=== PATIENT | female | born 1975 ===

== ENCOUNTER 2020-12-28 10:00 | Inpatient (IN) | payer OTHER ==
[~2020-12-28] VITALS: Ht 160 cm; Wt 63.5 kg
[2020-12-28] MEDS ORDERED: [UNRECOGNIZED DRUG - OTHER] PO (14:27)
[2021-01-04] MEDS ORDERED: PANTOPRAZOLE SO40 MG (08:16)
[2021-01-09] MEDS ORDERED: GABAPENTIN300 M2 (15:15)
[2021-01-10] MEDS ORDERED: ULTRAM50 MG PO (09:06)
[2021-01-10] MEDS ORDERED: INTESTINEX680 M1 PO (09:08)
[2021-01-10] MEDS ORDERED: POLY119PG PO (09:08)
== END 2021-01-10 11:22 | disposition home or self-care (01) | DRG 329 ==
LOC: EDUNIT# 10:00 → O/R 01-04 06:44 → SURG 01-04 06:44 → SURH 01-04 08:30 → SURG 01-04 15:37
PROVIDERS: Obstetrics & Gynecology Gynecology; ADMIT Surgery; ATTEND Surgery
PROC: 0UT1FZZ Resection of Left Ovary, Via Natural or Artificial Opening With Percutaneous Endoscopic Assistance (ICD-10-PCS; 2021-01-04)
PROC: 0DNW4ZZ Release Peritoneum, Percutaneous Endoscopic Approach (ICD-10-PCS; 2021-01-04)
PROC: 0UT7FZZ Resection of Bilateral Fallopian Tubes, Via Natural or Artificial Opening With Percutaneous Endoscopic Assistance (ICD-10-PCS; 2021-01-04)
PROC: 0DJD8ZZ Inspection of Lower Intestinal Tract, Via Natural or Artificial Opening Endoscopic (ICD-10-PCS; 2021-01-04)
PROC: 0UT9FZZ Resection of Uterus, Via Natural or Artificial Opening With Percutaneous Endoscopic Assistance (ICD-10-PCS; principal; 2021-01-04 08:30)
PROC: 0DBN4ZZ Excision of Sigmoid Colon, Percutaneous Endoscopic Approach (ICD-10-PCS; 2021-01-04 08:30)
DX: N80.5 Endometriosis of intestine (principal); K65.8 Other peritonitis; N80.0 Endometriosis of uterus; N72 Inflammatory disease of cervix uteri; N80.1 Endometriosis of ovary; N83.12 Corpus luteum cyst of left ovary; D28.7 Benign neoplasm of other specified female genital organs; D50.0 Iron deficiency anemia secondary to blood loss (chronic); K66.0 Peritoneal adhesions (postprocedural) (postinfection)

== ENCOUNTER 2021-01-02 11:15 | Day surgery (SDC) | payer OTHER ==
[~2021-01-02 11:15] MED LIST: [UNRECOGNIZED DRUG - OTHER] PO
== END 2021-01-02 15:45 | disposition home or self-care (01) ==
LOC: AMB-ENDOS 11:15
PROVIDERS: ATTEND Surgery
DX: K62.89 Other specified diseases of anus and rectum (principal); K64.4 Residual hemorrhoidal skin tags; Z12.11 Encounter for screening for malignant neoplasm of colon; Z20.822 Contact with and (suspected) exposure to COVID-19